=== PATIENT | female | born 1940 | race Caucasian/White ===

== ENCOUNTER → 2017-08-31 | Outpatient (CLI) | payer BC ==
[~2017-08-31] MED LIST: ASPIRIN325 PO; HYDROCHLOROTHIA25 M2 PO; LEVOTHYROXIN0.088 MG PO; LIPITOR80 MG PO; OXYBUTYNIN 5 MG5 M2 PO; PERCOCET 5-3251 EACH PO; TOPROL XL50 MG PO; ZOLOFT50 MG PO
== END ==
LOC: M.RAD 09:47
DX: M16.0 Bilateral primary osteoarthritis of hip (principal); M47.896 Other spondylosis, lumbar region

== ENCOUNTER → 2018-12-10 | Outpatient (CLI) | payer BC | LOC: M.RAD 14:23 | DX: M25.461 Effusion, right knee (principal); M25.861 Other specified joint disorders, right knee ==

== ENCOUNTER 2019-08-15 15:44 | Emergency (ER) | payer BC ==
[~2019-08-15] VITALS: Ht 160 cm; Wt 63.5 kg
[2019-08-15] MEDS ORDERED: ASA81BEC PO (15:57)
[2019-08-15] MEDS ORDERED: MAGNESIUM250 M1 PO (15:58)
[2019-08-15] MEDS ORDERED: CARVEDILOL12.5 MG PO (15:59)
[2019-08-15] MEDS ORDERED: CENTRUM ADULTS1 EACH PO (15:59)
[2019-08-15] MEDS ORDERED: CRESTOR40 MG PO (16:00)
[2019-08-15] MEDS ORDERED: SERTRALINE HCL100 MG PO (16:00)
[2019-08-15] MEDS ORDERED: BETAMETHASONE D15 GM TOP (16:01)
[2019-08-15] MEDS ORDERED: NORCO 5-325 TA1 EAC1 PO (17:24)
[2019-08-15] MEDS ORDERED: KEFLEX500 M1 PO (17:24)
[2019-08-15] MEDS ORDERED: BACTRIM DS TAB1 EACH PO (17:25)
[2019-08-15 18:08] VITALS: BP 147/56
== END 2019-08-15 18:09 | disposition home or self-care (01) ==
LOC: M.ERS 15:44
DX: S61.412A Laceration without foreign body of left hand, initial encounter (principal); L03.114 Cellulitis of left upper limb; L02.512 Cutaneous abscess of left hand; I10 Essential (primary) hypertension; E78.00 Pure hypercholesterolemia, unspecified; W22.8XXA Striking against or struck by other objects, initial encounter; Y93.89 Activity, other specified; Y92.89 Other specified places as the place of occurrence of the external cause; Y99.8 Other external cause status

== ENCOUNTER 2020-10-10 21:12 | Emergency (ER) | payer BC ==
[~2020-10-10] VITALS: Ht 157.5 cm; Wt 54.4 kg
[~2020-10-10 21:12] MED LIST changes: +ASA81BEC PO; +BACTRIM DS TAB1 EACH PO; +BETAMETHASONE D15 GM TOP; +CARVEDILOL12.5 MG PO; +CENTRUM ADULTS1 EACH PO; +CRESTOR40 MG PO; +KEFLEX500 M1 PO; +MAGNESIUM250 M1 PO; +NORCO 5-325 TA1 EAC1 PO; +SERTRALINE HCL100 MG PO
[2020-10-10] MEDS ORDERED: B-12500 MC1 PO (22:04)
[2020-10-10] MEDS ORDERED: HYDROCHLOROTHIA25 M1 PO (22:04)
[2020-10-10 23:37] LABS: ABSOLUTE EOSINOPHILS 0.1 thou/uL (0.0-0.7); ABSOLUTE LYMPHOCYTES 0.6 thou/uL (0.8-5.3); ABSOLUTE MONOCYTES 0.5 thou/uL (0.0-1.2); BASOPHILS 0.4 %; EOSINOPHILS 1.2 %; HEMOGLOBIN 12.2 gm/dL (12.0-15.0); LYMPHOCYTES 9.7 %; MCV 97.2 fL (80.0-100.0); MONOCYTES 8.8 %; NUCLEATED RBCS 0 /100WBC; PLATELET COUNT* 172 thou/uL (150-400); POLYS 79.9 %; RDW-CV 14.2 % (10.5-14.5); WBC 6.3 thou/uL (4.0-11.0)
[2020-10-10 23:43] LABS: CALCIUM 9.6 mg/dL (8.5-10.1); CREATININE 0.9 mg/dL (0.6-1.3); POTASSIUM 3.1 mmol/L (3.5-5.1)
[2020-10-10 23:48] LABS: TOTAL BILIRUBIN 0.6 mg/dL (<0.1-1.0)
[2020-10-10 23:59] VITALS: BP 138/78
== END 2020-10-10 23:55 | disposition short-term general hospital (02) ==
LOC: M.ERS 21:12
PROVIDERS: Personal Emergency Response Attendant
DX: S12.191A Other nondisplaced fracture of second cervical vertebra, initial encounter for closed fracture (principal); S02.40CA Maxillary fracture, right side, initial encounter for closed fracture; S01.111A Laceration without foreign body of right eyelid and periocular area, initial encounter; S01.511A Laceration without foreign body of lip, initial encounter; Z20.822 Contact with and (suspected) exposure to COVID-19; I10 Essential (primary) hypertension; E78.00 Pure hypercholesterolemia, unspecified; Z90.710 Acquired absence of both cervix and uterus; W22.8XXA Striking against or struck by other objects, initial encounter; Y93.89 Activity, other specified; Y92.89 Other specified places as the place of occurrence of the external cause; Y99.8 Other external cause status